=== PATIENT | female | born 1980 | race Caucasian/White ===

== ENCOUNTER 2025-06-10 12:08 | Emergency (ER) | payer OTHER ==
[~2025-06-10] VITALS: Ht 172.7 cm; Wt 67.2 kg
[2025-06-10] MEDS ORDERED: BACLOFEN (10 MG) 10 MG TABLET ONE (12:50)
[2025-06-10] MEDS ORDERED: KETOROLAC TROMETHAMINE INJ 30 MG/ML VIAL ONE ×2 (12:50→14:43)
[2025-06-10] MEDS: KETOROLAC TROMETHAMINE INJ 30 MG/ML VIAL IV ONE (13:06)
[2025-06-10] MEDS: BACLOFEN (10 MG) 10 MG TABLET PO ONE (13:07)
[2025-06-10] MEDS: KETOROLAC TROMETHAMINE INJ 30 MG/ML VIAL IM ONE (14:47)
[2025-06-10] MEDS ORDERED: KETO10TA2 PO (16:34)
[2025-06-10] MEDS ORDERED: HYDROCODONE/APAP 5/325MG TABLET ONE (17:06)
[2025-06-10] MEDS: HYDROCODONE/APAP 5/325MG TABLET PO ONE (17:09)
[2025-06-10 17:42] VITALS: BP 121/78; TEMP 98.2; O2SAT 100
[2025-06-11] MEDS ORDERED: KETO10TA2 PO (11:01)
== END 2025-06-10 17:43 | disposition home or self-care (01) ==
LOC: ER 12:39
DX: M54.50 Low back pain, unspecified (principal); M54.9 Dorsalgia, unspecified; R00.2 Palpitations; Z88.1 Allergy status to other antibiotic agents
CPT/HCPCS: 99285; 96374; 72131; 96375; 93005; 96372; J1885 ×2; J2919